=== PATIENT | female | born 1990 ===

== ENCOUNTER 2024-07-07 12:37 | Emergency (ER) | payer SELFPAY ==
--- NOTE | 2024-07-07 12:52 | PC.NURSE ---
PATIENT SEEN WALKING TO VEHICLE PER SECURITY VIA VIDEO CAMERA
== END 2024-07-07 12:49 | disposition left against medical advice (07) ==
LOC: SERX 13:09
PROVIDERS: Emergency Provider Emergency Medicine
DX: Z53.21 Procedure and treatment not carried out due to patient leaving prior to being seen by health care provider (principal)

== ENCOUNTER 2024-07-07 20:46 | Emergency (ER) | payer SELFPAY ==
[2024-07-07 20:47] VITALS: BMI 32.5
[2024-07-07 21:00] VITALS: BP 165/99; PULSE 122; RESP 20; TEMP 36.9; O2SAT 96
[2024-07-07 21:36] VITALS: BP 162/97; PULSE 107; RESP 19; TEMP 37.1; O2SAT 100
--- NOTE | 2024-07-07 21:54 | EDNOTE_ITS ---
ED Alcohol RME/HPI General Chief Complaint: Alcohol Stated Complaint: ETOH withdrawls and seizures Arrival date/time: 07/07/24 20:46 RME / HPI RME / HPI narrative: This section includes all my notes and documentations, including HPI, PE, and ED course. Jan Barnes MD HPI: 34-year-old female here to be evaluated with probable alcohol withdrawal and seizures. History is from the patient and mom. Has long history of severe alcohol abuse. Drinks heavily and chronically and every day. But in the past few days, she did not drink any alcohol. And mom reports many episodes of seizures as in the past. No injuries because patient was either sitting or laying. Mom describes seizures as a drooling and generalized shaking and no responsiveness. Patient requests help. No other complaints. ROS: All negative except as documented in HPI. Physical Exam: General: Alert and oriented. Generalized tremors noted. Eyes: Conjunctivae and lids clear. EOMI. PERRL. ENT: No nasal congestion. Neck: Supple. Heart: Sinus tachycardia noted. Lungs: No respiratory distress. Good air movement. No rhonchi, wheezing, rales. Abdomen: Soft and nontender. Normal bowel sounds. No distension. No rebound or guarding. Back: No CVA tenderness. Legs: No clubbing, cyanosis, edema. Skin: Warm and dry. Neuro: Alert and oriented X 3. Cranial Nerves II-XII grossly intact. No peripheral motor deficits. Musculoskeletal: All major joints and bones are not tender with no limited ROM. I reviewed all diagnostic test results. My interpretation of the EKG is sinus rhythm with no acute ST?T changes. My interpretation of the chest x-ray is no acute findings. Blood tests and urine tests unremarkable. At this point, diagnoses include alcohol withdrawal seizures. Treatment here included IV fluid and Zofran and Ativan and thiamine. I discussed the case with our hospitalist.? About the presentation and exam and diagnostics and treatments here.? And need of further care in the hospital.? Declined to accept the patient without negative head CT. Head CT pending. At 6 AM on 07/08/2024, the care of the patient was transferred to Dr. Blevins. Jan Barnes MD Related Data Allergies Allergy/AdvReac Type Severity Reaction Status Date / Time ketorolac (From Toradol) Allergy Intermediate Vomiting Verified 07/07/24 12:43 Course Quality Measures none Orders Category Date Time Status EKG (ED ONLY) *Do not use* NOW Care 07/07/24 21:56 Completed Saline [Insert IV] NOW Care 07/07/24 21:55 Active Straight [In and Out Catheter] X1 Care 07/07/24 21:[address] head/brain wo con Stat Exams 07/07/24 21:56 Taken EKG (ED Only) Stat Exams 07/07/24 21:56 Draft XR chest 1V portable Stat Exams 07/07/24 21:56 Completed Acetaminophen Stat Lab 07/07/24 22:05 Completed Alcohol, Blood Medical Stat Lab 07/07/24 22:05 Completed Amylase Stat Lab 07/07/24 22:05 Completed Bilirubin,Direct Stat Lab 07/07/24 22:05 Completed CBC Stat Lab 07/07/24 22:05 Completed CMP [Comprehensive Metabolic Panel] Stat Lab 07/07/24 22:05 Completed Drug Screen,Urine Stat Lab 07/07/24 21:57 Ordered HCG,Qualitative Serum Stat Lab 07/07/24 22:05 Completed Lipase Stat Lab 07/07/24 22:05 Completed Magnesium Stat Lab 07/07/24 22:05 Completed PT [Prothrombin Time with INR] Stat Lab 07/07/24 22:05 Completed PTT [Partial Thromboplastin Time] Stat Lab 07/07/24 22:05 Completed TSH [Thyroid Stimulating Hormone] Stat Lab 07/07/24 22:05 Completed Troponin I Stat Lab 07/07/24 22:05 Completed UA, C/S IF [Urinalysis, C/S if Indicated] Stat Lab 07/07/24 21:57 Ordered LORazepam [Ativan Inj] Med 07/07/24 21:55 Discontinued 2 mg IVP X1 ONE Ondansetron Inj [Zofran Inj] Med 07/07/24 21:55 Discontinued 4 mg IV X1 ONE Sodium Chloride 0.9% 1000 ml [Ns] 1,000 ml Med 07/07/24 21:55 Discontinued IV 999 mls/hr Sodium Chloride 0.9% 1000 ml [Ns] 1,000 ml Med 07/08/24 02:01 Discontinued IV 999 mls/hr Thiamine Inj [Vitamin B-1 Inj] 100 mg Med 07/07/24 21:56 Discontinued Sodium Chloride 0.9% [Ns] 100 ml IV X1 Vital Signs Vital signs: Vital Signs Temperature 98.4 F 07/07/24 21:00 Pulse Rate 122 H 07/07/24 21:00 Respiratory Rate 20 07/07/24 21:00 Blood Pressure 165/99 H 07/07/24 21:00 Pulse Oximetry (%) 96 07/07/24 21:00 Oxygen Delivery Method Room Air 07/07/24 21:00 Discharge Plan Prescriptions/Referrals Referrals: No Primary/Family,Physician [Primary Care Provider] - In 1 week Problem List Clinical Impression: Alcohol withdrawal seizure Patient/Caregiver Discharge Instructions Print Language: Azeri Alcohol Patient data External records reviewed:: [facility] previous records Clinical information provided by:: patient and family Social determinants that could affect healthcare access:: alcohol use Patient has the following chronic illnesses:: Alcohol abuse How is presenting disease/condition affected by chronic disease/condition?: exacerbated by Evaluation data The following diagnostics were reviewed and interpreted by me:: lab results, radiology exam(s) and EKG tracing(s) Lab and/or radiology exams considered but not ordered:: None Interpretation Summary: Normal diagnostics, head CT pending. Medications / Prescriptions Medications or Prescriptions considered but not ordered:: None Medication administrations:: Medication Administration History Discontinued Medications Sodium Chloride (Ns) 1,000 mls @ 999 mls/hr IV .Q1H1M ONE Stop: 07/07/24 22:55 Last Infusion: 07/07/24 23:41 Dose: Infused Documented By: Admin: 07/07/24 21:58 Dose: 999 mls/hr Documented By: ARLENE Thiamine HCl 100 mg/ Sodium (Chloride) 101 mls @ 202 mls/hr IV X1 ONE Stop: 07/07/24 22:25 Last Infusion: 07/07/24 23:41 Dose: Infused Documented By: Admin: 07/07/24 22:05 Dose: 202 mls/hr Documented By: SF Sodium Chloride (Ns) 1,000 mls @ 999 mls/hr IV .Q1H1M ONE Stop: 07/08/24 03:01 Last Infusion: 07/08/24 04:53 Dose: Infused Documented By: Admin: 07/08/24 02:16 Dose: 999 mls/hr Documented By: Lorazepam (Lorazepam 2 Mg/Ml Vial) 2 mg IVP X1 ONE Stop: 07/07/24 21:56 Last Admin: 07/07/24 22:06 Dose: 2 mg Documented By: SF Ondansetron HCl (Ondansetron Inj 2 Mg/Ml Inj 2 Ml) 4 mg IV X1 ONE; Protocol Stop: 07/07/24 21:56 Last Admin: 07/07/24 22:05 Dose: 4 mg Documented By: SF IV fluid and Zofran and Ativan and thiamine. Consultations Consultation(s) initiated? (list below): No Diagnosis Differential diagnosis alcohol: alcohol withdrawal delirium, hypomagnesemia, alcohol intoxication, alcohol ketoacidosis, alcohol withdrawal syndrome and alcohol withdrawal seizure Most likely diagnosis given after review of the tests above:: Alcohol withdrawal seizures Admission Indicated Admission indicated?: indicated Explain why admission is indicated or not indicated:: Admission was indicated due to alcohol withdrawal seizures. But hospitalists requested head CT prior to admission. Admission Request Was there a request for admission?: No Disposition Plan Disposition Plan: other (specify) (Care of the patient was transferred to Dr. Blevins. )
--- NOTE | 2024-07-07 21:56 | XR_ITS ---
Examination: CT brain head without contrast. 2-D sagittal coronal reconstructions Date and time of exam:July 08, 2024 0414 hours INDICATIONS: Seizures today CTDI: vol (mGy):49.4 DLP: (mGycm):1009 Technique: Multiple CT axial sections of the brain have been obtained, 5 mm slice thickness. Contrast has not been administered. 2-D sagittal, coronal reconstructions have been obtained Low dose protocols were performed. One or more of the following dose reduction techniques were used; automated exposure control, adjustment of the mA and/or KV according to patient size, use of iterative reconstruction technique. Findings: No significant ventricular enlargement. Intra-axial or extra-axial hemorrhage density is not seen. No mass effect or midline shift Basal cisterns are not remarkable. Fourth ventricle is midline. Cranial vault intact. Impression: Negative for acute hemorrhage, mass effect or midline shift Consider elective brain MRI follow-up, pre and postcontrast, seizure protocol
--- NOTE | 2024-07-07 21:56 | XR_ITS ---
Examination: AP chest single view TECHNIQUE: AP portable upright chest single view Exam date and time: July 07, 2024 1008 hours INDICATIONS: Shortness of breath today FINDINGS: Normal heart size. Lungs are clear. The osseous structures are intact IMPRESSION: No active disease
--- NOTE | 2024-07-07 21:56 | EKG_ITS ---
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
[2024-07-07] MEDS: SODIUM CHLORIDE 0.9% 1000 ML 1,000 ML 999 ML IV (21:58)
[2024-07-07] MEDS: ONDANSETRON INJ 2 MG/ML INJ 2 ML 4 MG IV (22:05)
[2024-07-07] MEDS: THIAMINE INJ 100 MG in SODIUM CHLORIDE 0.9% 100 ML 202 MG IV (22:05)
[2024-07-07] MEDS: LORazepam 2 MG/ML VIAL IVP (22:06)
[2024-07-07 22:18] LABS: Basophils % (Auto) 0 % (0-2.5); Eosinophils # (Auto) 0.1 Thou/mm3 (0.0-0.5); Eosinophils % (Auto) 2 % (0-10); Hematocrit 35.4 % (36.0-46.0); Hemoglobin 11.6 g/dL (12.0-16.0); Immature Granulocytes % (Auto) 1 % (0-0); Immature Granulocytes Auto 0.04 Thou/mm3 (0.00-0.00); Lymphocytes % (Auto) 36 % (10-50); Mean Corpuscular HGB Conc 32.8 g/dl (31.0-37.0); Mean Corpuscular Hemoglobin 26.9 pg (25.0-35.0); Mean Corpuscular Volume 82 fL (80-100); Monocytes # (Auto) 0.7 Thou/mm3 (0.0-0.8); Monocytes % (Auto) 8 % (0-12); Neutrophils # (Auto) 4.5 Thou/mm3 (1.8-7.7); Neutrophils % (Auto) 54 % (37-80); Nucleated Red Blood Cell % 0 /100 WBC (0); Platelet Count 312 Thou/mm3 (140-440); RDW Standard Deviation 49.3 fL (36.4-46.3); Red Blood Count 4.32 Miln/mm3 (4.00-5.20); White Blood Count 8.4 Thou/mm3 (3.6-11.0)
[2024-07-07 22:35] LABS: HCG,Qualitative Serum Negative
[2024-07-07 22:38] LABS: Partial Thromboplastin Time 24.7 Seconds (22.0-36.0); Prothrombin Time 9.9 Seconds (9.0-12.2)
[2024-07-07 22:55] LABS: Acetaminophen < 2.0 mcg/mL (10.0-20.0); Alanine Aminotransferase 95 U/L (10-49); Albumin, Serum 4.5 gm/dL (3.5-5.0); Albumin/Globulin Ratio 1.5 (1.2-2.2); Alcohol, Blood Medical < 3.0 mg/dL (0-10.0); Alkaline Phosphatase 168 U/L (46-116); Amylase 31 U/L (30-118); Anion Gap 10 (7-16); Aspartate Amino Transferase 59 U/L (0-34); BUN/Creatinine Ratio 15 Ratio (12-20); Bilirubin,Direct < 0.1 mg/dL (0.0-0.3); Bilirubin,Total 0.4 mg/dL (0.3-1.2); Blood Urea Nitrogen 15 mg/dL (9-23); Calcium 9.3 mg/dL (8.3-10.6); Calcium (Corrected) 9.3 mg/dL (8.5-10.1); Carbon Dioxide 25.8 mMol/L (20.0-31.0); Chloride 105 mMol/L (98-107); Estimated Creatinine Clearance 82.6 mL/min (>60); Glucose 87 mg/dL (74-106); Lipase 37 U/L (12-53); Magnesium 2.2 mg/dL (1.6-2.6); Osmolality,Calculated 281 (275-295); Potassium 3.4 mMol/L (3.4-5.1); Sodium 141 mMol/L (136-145); Thyroid Stimulating Hormone 1.38 uIU/mL (0.55-4.78); Total Protein 7.5 gm/dL (5.7-8.2); Troponin I < 0.002 ng/mL (0.0-0.045); eGFR > 60 See Note
[2024-07-08 01:45] VITALS: BP 106/62; PULSE 102; RESP 18; TEMP 36.4; O2SAT 100
[2024-07-08] MEDS: SODIUM CHLORIDE 0.9% 1000 ML 1,000 ML 999 ML IV (02:16)
--- NOTE | 2024-07-08 05:17 | PRELIM_ITS ---
CT scan of the head without intravenous contrast (axial sections with sagittal and coronal reformats). July 08, 2024 at 0414 hours Clinical History: Seizure. Comparison: None. Findings: No evidence of intracranial hemorrhage, mass effect or midline shift. The ventricles and CSF spaces are unremarkable. The calvarium is unremarkable. The mastoid air cells and the visualized paranasal sinuses are clear. Impression: No evidence of intracranial hemorrhage, mass effect or midline shift. Aspect score 10. Report Electronically Signed By: Leonid Willis 07/08/2024 5:17:07 AM [EST]
[2024-07-08 06:23] VITALS: BP 99/70; PULSE 85; RESP 19; TEMP 37; O2SAT 97
--- NOTE | 2024-07-08 07:00 | EDNOTE_ITS ---
Emergency Room Addendum Addendum Narrative: 0600: Care assumed from Dr. Barnes, the previous shift emergency physician. Past medical, surgical, social and family history reviewed. Vitals and home medications reviewed. I will assume the care of the patient at this time, pending CT report and final disposition. Please refer to the emergency department record for history and examination from initial visit.?The following addendum documentation note is intended to reflect any pending information, findings, or radiology results not included in the patient?s initial chart. 0752: Patient complains of jaw pain although reports has history of TMJ pain. On examination patient has right upper dental decay, right scalp pain, and right TMJ pain. Patient admits to drinking Vodka last night and reported having seizures. We reviewed all the results, analysis, and treatment plans. Patient is in agreement with plan to DC home. RADIOLOGY Ordering Physician: Date of Service: Procedure(s): Accession Number(s): cc: ~ CT scan of the head without intravenous contrast (axial sections with sagittal and coronal reformats). July 08, 2024 at 0414 hours Clinical History: Seizure. Comparison: None. Findings: No evidence of intracranial hemorrhage, mass effect or midline shift. The ventricles and CSF spaces are unremarkable. The calvarium is unremarkable. The mastoid air cells and the visualized paranasal sinuses are clear. Impression: No evidence of intracranial hemorrhage, mass effect or midline shift. Aspect score 10. Report Electronically Signed By: Leonid Willis 07/08/2024 5:17:07 AM [EST]
[2024-07-08 07:33] VITALS: BP 108/69; PULSE 78; RESP 17; TEMP 36.4; O2SAT 98
--- NOTE | 2024-07-08 08:05 | PC.NURSE ---
pt in bed at lowest position. reported 10/10 RAMÍREZ. provider notfied
--- NOTE | 2024-07-08 08:06 | PC.NURSE ---
unsteady gait while walking to restroom. pt also is forgetful by not remembering if she washed her hands
[2024-07-08] MEDS: levETIRAcetam INJ 100 MG/ML VIAL 5ML 1000 MG IVP (08:39)
[2024-07-08] MEDS: ACETAMINOPHEN IVPB 1,000 MG/100 ML VIAL 250 MG IV (08:44)
[2024-07-08 09:56] VITALS: BP 110/77; PULSE 82; RESP 17; O2SAT 96
--- NOTE | 2024-07-08 10:05 | PC.NURSE ---
attempted to call mother to pick up man pt. no answer. will call again soon
--- NOTE | 2024-07-08 10:20 | PC.LAC ---
recalled pts mom. no answer
--- NOTE | 2024-07-08 11:20 | PC.NURSE ---
pt gait is a bit unsteady. there was improvement from this morning. awared. will reassess gait soon to reevaluate
--- NOTE | 2024-07-08 11:23 | PC.NURSE ---
rn gave pt a sandwich
--- NOTE | 2024-07-08 11:39 | PC.NURSE ---
mom called to verify that she is on the way.
[2024-07-08 11:55] VITALS: BP 128/104
--- NOTE | 2024-07-08 12:34 | PC.NURSE ---
after discharged, pt requested a time documentation of discharge, per her care home request. she also requested lab of alcohol levels
== END 2024-07-08 11:55 | disposition home or self-care (01) ==
PROVIDERS: Emergency Medicine; Emergency Provider Family Medicine
DX: F10.139 Alcohol abuse with withdrawal, unspecified (principal); Y90.0 Blood alcohol level of less than 20 mg/100 ml; R56.9 Unspecified convulsions; K02.9 Dental caries, unspecified; M26.609 Unspecified temporomandibular joint disorder, unspecified side; R06.02 Shortness of breath; R00.0 Tachycardia, unspecified
CPT/HCPCS: 36415; 70450; 71045; 80053; 80307; 80320; 80329; 81001; 81025; 82150; 82248; 83690; 83735; 84443; 84484; 84703; 85025; 85610; 85730; 93005; 96361; 96365; 96366; 96367; 96375; 99284; J0131; J1953; J2060; J2405; J3411; J7030; J7050; G0480